=== PATIENT | female | born 2000 ===

== ENCOUNTER 2024-03-24 18:02 | Emergency (ER) | payer MEDICAID ==
[~2024-03-24] VITALS: Ht 157.5 cm; Wt 52.3 kg
[2024-03-24 18:35] VITALS: TEMP 98.3
[2024-03-24] MEDS: ACETAMINOPHEN 500 MG TABLET PO ONE (20:30)
[2024-03-24] MEDS: IBUPROFEN 600 MG TABLET PO ONE (20:30)
[2024-03-24] MEDS ORDERED: IBUP-1554 PO ×2 (22:12→22:17)
[2024-03-24] MEDS ORDERED: ACET-66 PO ×2 (22:12→22:17)
[2024-03-24 22:24] VITALS: BP 113/71; PULSE 80; RESP 18; O2SAT 98
== END 2024-03-24 22:26 | disposition home or self-care (01) ==
LOC: EMS 18:02
DX: S13.9XXA Sprain of joints and ligaments of unspecified parts of neck, initial encounter (principal); S80.01XA Contusion of right knee, initial encounter; S80.02XA Contusion of left knee, initial encounter; F12.90 Cannabis use, unspecified, uncomplicated; V89.2XXA Person injured in unspecified motor-vehicle accident, traffic, initial encounter; Y93.89 Activity, other specified; Y92.410 Unspecified street and highway as the place of occurrence of the external cause; Y99.8 Other external cause status
CPT/HCPCS: 72040; 84703; 96361; 99284; 36415-L1; 36415-TC